=== PATIENT | female | born 1970 | race Caucasian/White ===

== ENCOUNTER → 2017-02-01 | Outpatient (REF) | payer BC ==
[~2017-02-01] MED LIST: IBUP600T26 OR; NORCOTAB OR; levothyroxine PO
== END ==
LOC: M LAB REF 12:16
PROVIDERS: ATTEND Nurse Practitioner Women's Health
DX: N39.3 Stress incontinence (female) (male) (principal)

== ENCOUNTER → 2017-05-24 | Outpatient (CLI) | payer BC ==
--- NOTE | 2017-05-24 08:07 | REP ---
Clinical: Right upper quadrant abdominal pain. Technique: Marshall scale ultrasound using curved array transducer. Findings: The liver and pancreas are normal in contour, size, and echogenicity without focal hepatic or pancreatic lesions identified. The the patient is status post cholecystectomy and the common bile duct demonstrates compensatory dilatation to 12 mm. There is no evidence for intrahepatic biliary ductal dilatation. The right kidney is normal in reniform shape without hydronephrosis and measures 11.8 x 6.3 x 4.7 cm. No ascites. Visualized portions of the abdominal aorta normal. Impression: Prior cholecystectomy. Otherwise, normal right upper quadrant and gallbladder abdominal ultrasound. Signed by Luc Young MD 05/24/2017 07:57 A
== END ==
LOC: M RAD 07:02
PROVIDERS: ATTEND Internal Medicine Gastroenterology
DX: R10.9 Unspecified abdominal pain (principal)

== ENCOUNTER → 2017-06-16 | Outpatient (CLI) | payer BC ==
[~2017-06-16] VITALS: Ht 167.6 cm; Wt 83.9 kg
[~2017-06-16] MED LIST changes: +BIOT50004 PO; +CALC1TAB11 PO; +FERRTAB6 PO; +GLYCOPYRROLATE INJ 0.2 MG/ML 2 ML VIAL As Ordered ONE; +MISO200T56 PO; +MULT1TAB10 PO; +NS 1,000 ML IV ONE; +OMEP40CA2 PO; +PROPOFOL 200 MG/20 ML VIAL As Ordered ONE; +VITA100067 PO; +VITA100072 PO
--- NOTE | 2017-06-16 12:46 | ROOR ---
Patient Name: Olivia Dupree Procedure Date: 06/16/2017 12:11 PM Date of : 1970 Age: 46 Room: [facility] Gender: Female Note Status: Finalized Procedure: Colonoscopy Indications: Abnormal CT of the GI tract, Follow-up of diverticulitis Providers: Alan MICHELLE MD Referring MD: LEONEL RUBY MD Requesting Provider: Medicines: Monitored Anesthesia Care Complications: No immediate complications. Procedure: Pre-Anesthesia Assessment: - The heart rate, respiratory rate, oxygen saturations, blood pressure, adequacy of pulmonary ventilation, and response to care were monitored throughout the procedure. The Colonoscope was introduced through the anus and advanced to the cecum, identified by appendiceal orifice and ileocecal valve. The colonoscopy was performed without difficulty. The patient tolerated the procedure well. The quality of the bowel preparation was good. Findings: The perianal and digital rectal examinations were normal. A diminutive polyp was found in the hepatic flexure. The polyp was sessile. The polyp was removed with a cold snare. Resection was complete, but the polyp tissue was not retrieved. Multiple medium-mouthed diverticula were found in the sigmoid colon. Small Internal Hemorrhoids. The exam was otherwise without abnormality on direct and retroflexion views. Impression: - One diminutive polyp at the hepatic flexure, removed with a cold snare. Complete resection. Polyp tissue not retrieved. - Mild diverticulosis in the sigmoid colon. - Small Internal Hemorrhoids. - The examination was otherwise normal on direct and retroflexion views. Recommendation: - Repeat colonoscopy in 5 years for adenoma surveillance. Alan Michelle MD Alan MICHELLE MD 06/16/2017 12:46:00 PM This report has been signed electronically. Number of Addenda: 0 Note Initiated On: 06/16/2017 12:11 PM Estimated Blood Loss: Estimated blood loss: none.
[2017-06-16 13:00] VITALS: BP 118/73
== END | disposition home or self-care (01) ==
LOC: M OPP 11:19
PROVIDERS: ATTEND Internal Medicine Gastroenterology
DX: R93.3 Abnormal findings on diagnostic imaging of other parts of digestive tract (principal); K57.92 Diverticulitis of intestine, part unspecified, without perforation or abscess without bleeding; D12.3 Benign neoplasm of transverse colon; K57.30 Diverticulosis of large intestine without perforation or abscess without bleeding; K64.8 Other hemorrhoids; K21.9 Gastro-esophageal reflux disease without esophagitis; R94.5 Abnormal results of liver function studies; E03.9 Hypothyroidism, unspecified; R12 Heartburn; R50.9 Fever, unspecified; M19.90 Unspecified osteoarthritis, unspecified site; Z98.84 Bariatric surgery status; Z87.891 Personal history of nicotine dependence; Z88.1 Allergy status to other antibiotic agents; Z79.899 Other long term (current) drug therapy

== ENCOUNTER 2019-04-11 09:32 | Day surgery (SDC) | payer BC ==
[~2019-04-11] VITALS: Ht 167.6 cm; Wt 83.4 kg
[~2019-04-11 09:32] MED LIST changes: -GLYCOPYRROLATE INJ 0.2 MG/ML 2 ML VIAL As Ordered ONE; -NS 1,000 ML IV ONE; -PROPOFOL 200 MG/20 ML VIAL As Ordered ONE; +RA T500C2 PO; +SUPE600T4 PO; +VITA-183 PO; +VITA100018 PO; -VITA100072 PO; +[UNRECOGNIZED DRUG - CODE] PO
[2019-04-11] MEDS ORDERED: LR 1,000 ML IV ONE (09:45)
[2019-04-11 10:01] LABS: HEMATOCRIT 39.6 % (36.0-47.0); HEMOGLOBIN 13.2 g/dl (12.0-15.5); MEAN CORPUSCULAR HEMOGLOBIN 31.9 pg (27.0-33.0); MEAN CORPUSCULAR HGB CONC 33.3 g/dl (32.0-36.5); MEAN CORPUSCULAR VOLUME 95.7 fl (80.0-96.0); PLATELET COUNT, AUTOMATED 306 10^3/uL (150-450); RED BLOOD COUNT 4.14 10^6/uL (4.00-5.40); WHITE BLOOD COUNT 8.3 10^3/uL (4.0-10.0)
[2019-04-11] MEDS ORDERED: ONDANSETRON 4MG/2ML VIAL (J2405) As Ordered ONE (10:17)
[2019-04-11] MEDS ORDERED: dexameTHASONE 4 MG/ML 1ML VIAL (J1100) As Ordered ONE (10:17)
[2019-04-11] MEDS ORDERED: ROCURONIUM BROMIDE 50 MG/5 ML VIAL As Ordered ONE (10:17)
[2019-04-11] MEDS ORDERED: SUGAMMADEX SODIUM 500 MG/5 ML VIAL (BRIDION) As Ordered ONE (10:17)
[2019-04-11] MEDS ORDERED: PROPOFOL 200 MG/20 ML VIAL As Ordered ONE (10:17)
[2019-04-11] MEDS ORDERED: LIDOCAINE 2% INJ 100 MG/5 ML SDV (FOR ANES.) As Ordered ONE (10:17)
[2019-04-11] MEDS ORDERED: KETOROLAC 60 MG/2 ML VIAL (J1885) As Ordered ONE (10:18)
[2019-04-11] MEDS ORDERED: fentaNYL 100 MCG/2 ML INJECTION (J3010) As Ordered ONE (10:19)
[2019-04-11] MEDS ORDERED: MIDAZOLAM INJ 2 MG/2 ML VIAL (J2250) As Ordered ONE (10:20)
[2019-04-11] MEDS ORDERED: PROPOFOL 500 MG/50 ML VIAL As Ordered ONE (12:04)
[2019-04-11] MEDS ORDERED: LR 1,000 ML IV SCH ×2 (13:00)
[2019-04-11] MEDS ORDERED: fentaNYL 100 MCG/2 ML INJECTION (J3010) IV PRN (13:00)
[2019-04-11] MEDS ORDERED: NORCO, ANEXSIA 5/325MG TABLET (HYDROcodone/ACETAMINOPHEN) PO PRN (13:00)
--- NOTE | 2019-04-11 13:02 | RO ---
DATE OF PROCEDURE: 04/11/2019 PREOPERATIVE DIAGNOSIS: Pain and right ovarian cyst. POSTOPERATIVE DIAGNOSIS: Pain and paratubal cyst. PROCEDURE: Laparoscopy, drainage of right paratubal cyst. SURGEON: Dr. Sujatha Mcneal CENTRIFUGAL SCREEN TENDER: None. ANESTHESIA: General endotracheal anesthesia. BRIEF DESCRIPTION OF PROCEDURE AND FINDINGS: Olivia was brought to the operating room where sufficient general endotracheal anesthesia was induced and she was prepped, draped and positioned in the usual sterile fashion. She already a hysterectomy so of course the uterine manipulator was not placed. A transverse incision was made at the umbilicus. Subcutaneous tissues were carefully dissected to the level of the rectus fascia which was elevated with Constance clamps and incised under direct visualization in an open laparoscopic technique which was then used to carefully dissect to the peritoneum which was bluntly entered. The 0 Vicryl retention sutures placed in the fascia and then the Gold cannula placed into the peritoneal cavity under direct visualization. CO2 insufflation was then begun. After adequate CO2 insufflation, the laparoscopic camera was placed and the peritoneal cavity visualized. The patient had previous surgery. There was not a lot of scar tissue despite these previous surgeries and several pictures were taken just to document this. We left the bladder a little full so as to outline it since we did not have a vaginal manipulator so you can clearly see that in the pictures and there are obvious areas of surgical change where the left ovary was removed and of course the uterus was removed. On the right side, there was a large cystic lesion, but this was actually retroperitoneal and inside the mesentery to the tube, a paratubal cyst on the right side, separate from the ovary. We were able to drain it with the aspirator straight through the operative scope and collect clear, very benign appearing fluid from it, and we drained out this paratubal cyst. After it was deflated underneath the mesentery there we could see that the tube was looking otherwise normal. There was no problem at the fimbriated end of the tube and no problem at the ovary, which had a teeny maybe cm and a half follicular cyst in this not yet menopausal individual which is why she did not want her ovaries out. So as we had discussed, she really only wanted it drained unless there was something concerning, so we went ahead and collected all that fluid for cytology, but there really was nothing concerning in the appearance of this fluid. After having drained it, and seeing that normal ovary, and really evaluating, there are a couple of tiny loose adhesions of the bowel in the pelvis, none of these appeared likely to cause any kind of disruption. They are really of the epiploicae to the surface of the bladder, that kind of thing, nothing that really needed to come down. So we went ahead and did another anatomical survey of the pelvis and the abdomen and then went ahead and completed the case. With the instruments removed, we did empty the bladder at the end of the case, but prior to that we let the CO2 out, removed the instruments and closed the fascial wound with the 0 Vicryl retention sutures and closed the skin with subcuticular 3-0 Vicryl stitch. We put a sterile dressing on, emptied the bladder and ended the case. Estimated blood loss for the procedure was maybe 8 mL. Specimen: The contents of that cystic lesion within the mesentery of the right tube, so a paratubal cyst. Fluid replacement crystalloid. Complications: None. Condition and Disposition: Olivia tolerated the procedure well and was recovering in the recovery room in good condition.
[2019-04-11 13:20] VITALS: BP 147/78
== END 2019-04-11 13:44 | disposition home or self-care (01) ==
LOC: M SDC 09:32
PROVIDERS: ATTEND Obstetrics & Gynecology
DX: N83.8 Other noninflammatory disorders of ovary, fallopian tube and broad ligament (principal); N73.6 Female pelvic peritoneal adhesions (postinfective); E03.9 Hypothyroidism, unspecified; K21.9 Gastro-esophageal reflux disease without esophagitis; Z98.84 Bariatric surgery status; Z79.899 Other long term (current) drug therapy; Z88.1 Allergy status to other antibiotic agents
CPT/HCPCS: 36415; 49322; 85027; 88108; 88313; J1100; J1885; J2250; J2405; J3010

== ENCOUNTER → 2020-03-23 | Outpatient (CLI) | payer BC ==
[~2020-03-23] MED LIST changes: +LEVO50TA5 PO; -OMEP40CA2 PO; +OMEP40CA97 PO; +VITA100054 PO; +VITAD1000T PO
== END ==
LOC: M LABSMTC 12:52
PROVIDERS: ATTEND Family Medicine
DX: Z11.59 Encounter for screening for other viral diseases (principal); Z20.828 Contact with and (suspected) exposure to other viral communicable diseases

== ENCOUNTER 2020-03-26 11:41 | Day surgery (SDC) | payer BC ==
[~2020-03-26] VITALS: Ht 167.6 cm; Wt 86.2 kg
[~2020-03-26 11:41] MED LIST changes: +LR 1,000 ML IV ONE; +ceFAZolin SOD 2 GM in IV 1 EA IV ONE
[2020-03-26] MEDS ORDERED: MIDAZOLAM INJ 2MG/2ML VIAL (J2250 PER 1MG) As Ordered ONE (12:05)
[2020-03-26] MEDS ORDERED: KETOROLAC 60 MG/2 ML VIAL As Ordered ONE (12:05)
[2020-03-26] MEDS ORDERED: LIDOCAINE 2% 100MG/5ML SDV (FOR ANES.) As Ordered ONE (12:05)
[2020-03-26] MEDS ORDERED: dexameTHASONE 4 MG/ML 1ML VIAL (J1100 PER 1MG) As Ordered ONE (12:05)
[2020-03-26] MEDS ORDERED: fentaNYL 100 MCG/2 ML INJECTION (J3010) As Ordered ONE (12:05)
[2020-03-26] MEDS ORDERED: ONDANSETRON 4MG/2ML VIAL As Ordered ONE (12:05)
[2020-03-26] MEDS ORDERED: propofoL 200 MG/20 ML VIAL As Ordered ONE (12:05)
[2020-03-26] MEDS ORDERED: SCOPOLAMINE 1MG TRANSDERMAL PATCH As Ordered ONE (12:22)
[2020-03-26] MEDS ORDERED: SCOPOLAMINE 1MG TRANSDERMAL PATCH TOP ONE (12:30)
[2020-03-26] MEDS: VASOPRESSIN INJ 20 UNITS/ML VIAL As Ordered ONE (13:15)
[2020-03-26] MEDS ORDERED: PHENYLephrine HCL 500 MCG/5 ML (100MCG/ML) SYRINGE (J2370) As Ordered ONE (13:28)
[2020-03-26] MEDS ORDERED: ePHEDrine SULFATE 25 MG/5 ML(5MG/ML) SYRINGE As Ordered ONE (13:28)
[2020-03-26] MEDS ORDERED: oxyCODONE 5MG TAB PO PRN (14:15)
[2020-03-26] MEDS ORDERED: LR 1,000 ML IV SCH (14:15)
[2020-03-26] MEDS ORDERED: HYDROMORPHONE HCL 0.5 MG/ 0.5 ML SYRINGE (J1170 PER 1) IV PRN (14:15)
[2020-03-26] MEDS ORDERED: fentaNYL 100 MCG/2 ML INJECTION (J3010) IV PRN (14:15)
[2020-03-26] MEDS ORDERED: ONDANSETRON 4MG/2ML VIAL IV PRN (14:15)
[2020-03-26] MEDS ORDERED: NORCO, ANEXSIA 5/325MG TABLET (HYDROcodone/ACETAMINOPHEN) PO PRN (14:30)
[2020-03-26 15:15] VITALS: BP 125/80
[2020-03-26] MEDS ORDERED: IBUPROFEN 600 MG TAB PO PRN (20:00)
--- NOTE | 2020-03-29 07:42 | RO ---
DATE OF PROCEDURE: 03/26/2020 PREPROCEDURE DIAGNOSIS: Mixed incontinence but primarily she had been treating for her stress urinary incontinence with urethral hypermobility. POSTPROCEDURE DIAGNOSIS: Mixed incontinence but primarily she had been treating for her stress urinary incontinence with urethral hypermobility. FINDINGS: As expected. PROCEDURE: Mini midurethral sling Altis placed with cystourethroscopy. SURGEON: Gabbie Mcneal MD AUTO BODY TECHNICIAN: None. ANESTHESIA: LMA. SPECIMENS: None. DESCRIPTION OF PROCEDURE: Olivia was brought to the operating room where sufficient LMA anesthesia was induced. She was prepped, draped and positioned in the usual sterile fashion and approximately a centimeter to a centimeter and a half cephalad from the urethral meatus, the anterior vaginal wall was grasped with an Allis clamp. Patient has an already known cystocele along with her urethrocele and hypermobility, and she has already known detrusor overactivity. She is aware that the detrusor overactivity will not be treated by this procedure. Hence, the hope that her hypermobility could be treated by a mini midurethral sling, which is less likely hopefully to cause irritation to perivesical tissues. Vasopressin was injected for hemostasis and hydrodissection over the anterior vaginal wall and then approximately a 2 cm anterior vaginal wall incision was made, with the Strully scissors used to dissect out laterally for the tracks for the trocars. Given that it is Altis, we made a slightly wider dissection so that the mesh would lay down as flat as possible, and I used my fingers to make sure that dissection was smoothly out to on both sides. We then, starting on the patient's right side, placed the anchor and careful to place it carefully in the tissues and avoid injuring the anterior sulcus of the vagina. Then we placed the left side and then used the loop to carefully snug up the Altis so that it was touching over the tissues but not tight. I did initially over correct a little and then loosened it up and then carefully brought it in. And I had a pair of Metzenbaums (Metze's) closed, then went ahead and slid behind it to make sure that I did not have it too tight, especially since the patient's tissues are quite mobile and so their position laying down is not going to be quite their position standing up, so I did not want it too tight but at the same time, I did not want it so loose that it did not have any impact. So, took quite a bit of time readjusting to try to get that in just the right spot, and then trimmed the loop off and went ahead and scoped the patient. We were able to place the scope without resistance and could see that there was no injury lateral to the trigone where you would typically see it if it was injured from this. But we did, of course, a 360-degree circumferential evaluation of the bladder wall and noted the normal ureteral orifices and normal trigone, other than having to lift it up a little bit with this patient's cystocele, which was not our focus today. We then finished closing up the vaginal wound and the procedure was ended. Estimated blood loss for the procedure: About 12 mL. Fluid replacement: Crystalloid. Complications: None. Condition and Disposition: Olivia tolerated the procedure well and was recovering in the recovery room in good condition.
== END 2020-03-26 15:30 | disposition home or self-care (01) ==
LOC: M SDC 11:41
PROVIDERS: ATTEND Obstetrics & Gynecology
DX: N39.46 Mixed incontinence (principal); N36.41 Hypermobility of urethra; N81.10 Cystocele, unspecified; E03.9 Hypothyroidism, unspecified; K57.92 Diverticulitis of intestine, part unspecified, without perforation or abscess without bleeding; M19.90 Unspecified osteoarthritis, unspecified site; T41.45XA Adverse effect of unspecified anesthetic, initial encounter; R11.2 Nausea with vomiting, unspecified; Z87.891 Personal history of nicotine dependence; Z98.84 Bariatric surgery status; Z88.1 Allergy status to other antibiotic agents; Z79.899 Other long term (current) drug therapy
CPT/HCPCS: 57288; C1771; J0690; J1100; J1885; J2250; J2370; J2405; J3010

== ENCOUNTER 2023-11-29 11:51 | Day surgery (SDC) | payer BC ==
[~2023-11-29] VITALS: Ht 167.6 cm; Wt 72.8 kg
[~2023-11-29 11:51] MED LIST changes: -BIOT50004 PO; +BIOT5CAP8 PO; -LR 1,000 ML IV ONE; -MISO200T56 PO; +MISO200T83 PO; +OMEP40CA4 PO; -OMEP40CA97 PO; +VITA100093 PO; -VITAD1000T PO
[2023-11-29] MEDS ORDERED: LR 1,000 ML IV SCH ×2 (12:25→15:15)
[2023-11-29] MEDS ORDERED: propofoL 200 MG/20 ML VIAL As Ordered ONE (12:44)
[2023-11-29] MEDS ORDERED: KETOROLAC 60MG 2ML VIAL As Ordered ONE (12:44)
[2023-11-29] MEDS ORDERED: ONDANSETRON 4MG 2ML VIAL As Ordered ONE (12:44)
[2023-11-29] MEDS ORDERED: MIDAZOLAM INJ 2MG/2ML VIAL As Ordered ONE (12:45)
[2023-11-29] MEDS ORDERED: fentaNYL 100 MCG/2 ML INJECTION As Ordered ONE (12:45)
[2023-11-29] MEDS: LIDOCAINE 1% SDV 30ML VIAL As Ordered ONE (13:53)
[2023-11-29] MEDS ORDERED: dexmedeTOMIDine (4MCG/ML)200MCG/50ML BTL (PRECEDEX) As Ordered ONE (14:26)
[2023-11-29] MEDS ORDERED: diphenhydrAMINE 50MG/ML VIAL As Ordered ONE ×3 (14:44→14:49)
[2023-11-29] MEDS ORDERED: GLYCOPYRROLATE INJ 0.2 MG/ML 2 ML VIAL As Ordered ONE (15:00)
[2023-11-29] MEDS ORDERED: oxyCODONE 5MG TAB PO PRN (15:15)
[2023-11-29] MEDS ORDERED: MORPHINE 2 MG/ML 1ML VIAL IV PRN (15:15)
[2023-11-29] MEDS ORDERED: ONDANSETRON 4MG 2ML VIAL IV PRN (15:15)
[2023-11-29] MEDS ORDERED: fentaNYL 100 MCG/2 ML INJECTION IV PRN (15:15)
[2023-11-29 16:54] VITALS: BP 157/85; TEMP 97.7; O2SAT 97
== END 2023-11-29 17:07 | disposition home or self-care (01) ==
LOC: M SDC 11:51
PROVIDERS: ATTEND Podiatrist Foot & Ankle Surgery
DX: M19.071 Primary osteoarthritis, right ankle and foot (principal); E03.9 Hypothyroidism, unspecified; Z79.890 Hormone replacement therapy; Z90.711 Acquired absence of uterus with remaining cervical stump; F17.210 Nicotine dependence, cigarettes, uncomplicated
CPT/HCPCS: 28740; C1713; J0665; J1100; J1200; J1885; J2250; J2405; J3010

== ENCOUNTER 2024-09-12 07:44 | Day surgery (SDC) | payer BC ==
[~2024-09-12] VITALS: Ht 167.6 cm; Wt 76.0 kg
[~2024-09-12 07:44] MED LIST changes: -ceFAZolin SOD 2 GM in IV 1 EA IV ONE
[2024-09-12] MEDS ORDERED: fentaNYL 100 MCG/2 ML INJECTION As Ordered ONE (07:59)
[2024-09-12] MEDS ORDERED: MIDAZOLAM INJ 2MG/2ML VIAL As Ordered ONE (08:00)
[2024-09-12] MEDS ORDERED: LIDOCAINE 2% 100MG/5ML SDV (FOR ANES.) As Ordered ONE (08:01)
[2024-09-12] MEDS ORDERED: propofoL 200 MG/20 ML VIAL As Ordered ONE (08:01)
[2024-09-12] MEDS ORDERED: ACETAMINOPHEN 1000MG/100ML IV BAG As Ordered ONE (08:01)
[2024-09-12] MEDS ORDERED: ONDANSETRON 4MG 2ML VIAL As Ordered ONE (08:04)
[2024-09-12] MEDS ORDERED: KETOROLAC 60MG 2ML VIAL As Ordered ONE (08:04)
[2024-09-12] MEDS ORDERED: LR 1,000 ML IV SCH (08:10)
[2024-09-12] MEDS: ceFAZolin SOD 2 GM in IV 1 EA IV ONE (08:53)
[2024-09-12] MEDS: LIDOCAINE 1% SDV 30ML VIAL As Ordered ONE (09:00)
[2024-09-12] MEDS: SCOPOLAMINE 1MG TRANSDERMAL PATCH As Ordered ONE (09:01)
[2024-09-12] MEDS: SCOPOLAMINE 1MG TRANSDERMAL PATCH TOP ONE (09:25)
[2024-09-12] MEDS ORDERED: ONDANSETRON 4MG 2ML VIAL IV PRN (10:40)
[2024-09-12] MEDS ORDERED: fentaNYL 100 MCG/2 ML INJECTION IV PRN (10:40)
[2024-09-12] MEDS: oxyCODONE 5MG TAB PO PRN (11:31)
[2024-09-12 12:04] VITALS: BP 161/90; TEMP 97; O2SAT 99
== END 2024-09-12 12:07 | disposition home or self-care (01) ==
LOC: M SDC 07:44
PROVIDERS: ATTEND Podiatrist Foot & Ankle Surgery
DX: M21.611 Bunion of right foot (principal); M20.11 Hallux valgus (acquired), right foot; E03.9 Hypothyroidism, unspecified; K57.92 Diverticulitis of intestine, part unspecified, without perforation or abscess without bleeding; F17.218 Nicotine dependence, cigarettes, with other nicotine-induced disorders; Z88.1 Allergy status to other antibiotic agents; Z79.899 Other long term (current) drug therapy
CPT/HCPCS: 28297; 28299; 28310; C1713; J0131; J0665; J0690; J1100; J1885; J2250; J2405; J3010